=== PATIENT | female | born 1980 | race Caucasian/White ===

== ENCOUNTER → 2024-10-25 13:42 | Outpatient (REF) | payer OTHER, SELFPAY | LOC: HWWDC 13:42 | PROVIDERS: ATTENDING PHYSICIAN Family Medicine; REFERRING PHYSICIAN Obstetrics & Gynecology Gynecology | DX: Z12.31 Encounter for screening mammogram for malignant neoplasm of breast (principal) | CPT/HCPCS: 77063; 77067 ==

== ENCOUNTER 2024-10-26 06:18 | Day surgery (SDC) | payer OTHER, SELFPAY ==
[2024-10-26 10:02] LABS: Glucose - Point of Care 82 mg/dl (70-99)
== END 2024-10-26 10:41 | disposition home or self-care (01) ==
LOC: GI 06:18
PROVIDERS: ATTENDING PHYSICIAN Internal Medicine Gastroenterology
DX: Z12.11 Encounter for screening for malignant neoplasm of colon (principal); Z83.719 Family history of colon polyps, unspecified; K64.8 Other hemorrhoids
CPT/HCPCS: G0105; 82962

== ENCOUNTER → 2024-11-07 10:13 | Outpatient (REF) | payer OTHER, SELFPAY | LOC: WDC 10:13 | PROVIDERS: ATTENDING PHYSICIAN Family Medicine | DX: R92.8 Other abnormal and inconclusive findings on diagnostic imaging of breast (principal) | CPT/HCPCS: 77065 ==